=== PATIENT | female | born 1955 | race African-American/Black ===

== ENCOUNTER 2024-06-10 16:19 | Inpatient (IN) | payer MEDICARE, MEDICAID ==
[~2024-06-10] VITALS: Ht 160 cm; Wt 63.0 kg
[~2024-06-10 16:19] MED LIST: BACL20TA PO; DIPH25CA83 PO; NORCO PO
[2024-06-10] MEDS ORDERED: CEFTRIAXONE 1GM/50ML 50 ML IV ONE (16:30)
[2024-06-10 17:45] LABS: BASOPHILS % 0.6 % (0.0-2.0); DIFFERENTIAL COMMENT 0; EOSINOPHILS % 0.2 % (0.0-5.0); LYMPHOCYTES % 7.4 % (20.0-50.0); MEAN CORPUSCULAR HEMOGLOBIN 31.5 pg (28.0-32.0); MEAN CORPUSCULAR HGB CONC 31.2 g/dL (31.0-37.0); MEAN CORPUSCULAR VOLUME 100.8 fL (81.0-99.0); MEAN PLATELET VOLUME 7.5 fl (7.4-10.4); MONOCYTES % 6.2 % (2.0-8.0); NEUTROPHILS % 85.6 % (40.0-76.0); PLATELET 301 x1000/uL (130-400); RED BLOOD CELL COUNT 2.21 mill/uL (4.2-5.4); RED CELL DISTRIBUTION WIDTH 12.9 % (11.6-14.6); WHITE BLOOD COUNT 8.7 x1000/uL (4.5-11.0)
[2024-06-10 17:46] LABS: CHLORIDE 111 mEq/L (98-107); SODIUM 136 mEq/L (136-145)
[2024-06-10 17:47] LABS: CALCIUM 9.2 mg/dL (8.7-10.4); CARBON DIOXIDE 12 mEq/L (21-32)
[2024-06-10 17:49] LABS: PROTHROMBIN TIME 10.8 sec (9.6-11.0)
[2024-06-10 17:52] LABS: CREATININE 2.6 mg/dL (0.6-1.0); GLUCOSE 89 mg/dL (70-105); UREA NITROGEN BLOOD 44 mg/dL (9-23)
[2024-06-10 17:53] LABS: TROPONIN I HIGH SENSITIVITY 9 ng/L (3.0-34)
[2024-06-10 17:54] LABS: ALANINE AMINOTRANSFERASE 27 IU/L (10-49); ALBUMIN 4.3 g/dL (3.2-4.8); ASPARTATE AMINOTRANSFERASE 36 IU/L (<34); BILIRUBIN DIRECT 0.1 mg/dL (<=3.0); BILIRUBIN TOTAL 0.3 mg/dL (0.1-1.0); PROTEIN TOTAL 8.1 g/dL (6.0-8.3)
[2024-06-10 17:58] LABS: HEMATOCRIT. 22.3 % (36.0-48.0)
[2024-06-10 18:08] LABS: ETHANOL BLOOD < 10 mg/dL (<10)
[2024-06-10] MEDS ORDERED: ACETAMINOPHEN 325MG TABLET PO PRN (23:30)
[2024-06-10] MEDS ORDERED: IPRATROPIUM/ALBUTEROL 0.5-3(2.5)MG/3ML NEB HHN PRN (23:30)
[2024-06-10] MEDS ORDERED: GUAIFENESIN 200MG/10ML SUGAR FREE UDC PO PRN (23:30)
[2024-06-10] MEDS ORDERED: MAGNESIUM/ALUMINUM HYDROXIDE/SIMETHICONE 30ML UDC PO PRN (23:30)
[2024-06-10] MEDS ORDERED: LACTATED RINGERS 1,000 ML IV SCH (23:50)
[2024-06-10] MEDS ORDERED: AMLODIPINE 10MG TABLET PO SCH (23:50)
[2024-06-11 00:21] LABS: IRON 16 ug/dL (50-170)
[2024-06-11 00:24] LABS: TOTAL IRON BINDING CAPACITY 445 ug/dl (250-425)
[2024-06-11 00:27] LABS: FERRITIN 48 ng/mL (10-291); FOLIC ACID (FOLATE) SERUM > 20.00 ng/mL (>5.38); VITAMIN B12 SERUM 277 pg/mL (211-911)
[2024-06-11 00:28] LABS: T4 FREE 0.89 ng/dL (0.89-1.76); THYROID STIMULATING HORMONE 3.17 uIU/mL (0.55-4.78)
[2024-06-11] MEDS: CEFTRIAXONE 1GM/50ML 50 ML IV NR (03:00)
[2024-06-11] MEDS: AMLODIPINE 5MG TABLET PO SCH (04:15)
[2024-06-11 07:29] LABS: BASOPHILS % 0.5 % (0.0-2.0); DIFFERENTIAL COMMENT 0; EOSINOPHILS % 0.1 % (0.0-5.0); HEMATOCRIT. 24.1 % (36.0-48.0); HEMOGLOBIN. 7.6 g/dL (12.0-16.0); LYMPHOCYTES % 14.8 % (20.0-50.0); MEAN CORPUSCULAR HEMOGLOBIN 31.8 pg (28.0-32.0); MEAN CORPUSCULAR HGB CONC 31.5 g/dL (31.0-37.0); MEAN CORPUSCULAR VOLUME 101.1 fL (81.0-99.0); MEAN PLATELET VOLUME 7.1 fl (7.4-10.4); MONOCYTES % 6.5 % (2.0-8.0); NEUTROPHILS % 78.1 % (40.0-76.0); PLATELET 309 x1000/uL (130-400); RED BLOOD CELL COUNT 2.38 mill/uL (4.2-5.4); WHITE BLOOD COUNT 7.4 x1000/uL (4.5-11.0)
[2024-06-11 07:52] LABS: POTASSIUM 4.1 mEq/L (3.5-5.1)
[2024-06-11 07:56] LABS: CREATINE KINASE MB FRACTION 2.2 ng/mL (0.5-3.6)
[2024-06-11 07:58] LABS: CREATININE 2.3 mg/dL (0.6-1.0)
[2024-06-11] MEDS: SODIUM CHLORIDE 0.9% 1000ML BAG (SEPSIS BOLUS) IV ONE (08:57)
[2024-06-11] MEDS: SODIUM BICARBONATE 8.4% 50MEQ/50ML SYR IV NR (11:17)
[2024-06-11 11:38] LABS: CREATINE KINASE 171 IU/L (34-145); PHOSPHORUS 6.1 mg/dL (2.5-4.9)
[2024-06-11 12:00] VITALS: BP 165/73; PULSE 90; RESP 20; TEMP 98.5
[2024-06-11] MEDS: SODIUM BICARBONATE 100 MEQ in DEXTROSE 5% WATER 900 ML IV SCH (12:00)
[2024-06-11 12:01] LABS: BG BASE EXCESS -14.4 mmol/L (-2.0-2.0); BG CARBOXYHEMOGLOBIN 1.3 % (0.5-1.5); BG DEOXYHEMOGLOBIN 2.6 % (0.0-5.0); BG FRACTION INSPIRED OXYGEN 21; BG HCO3 ACT 10.8 mmol/L (22.0-26.0); BG METHEMOGLOBIN 0.3 % (0.0-1.5); BG OXYGEN SATURATION 97.4 % (92.0-98.5); BG OXYHEMOGLOBIN 95.8 % (94.0-97.0); BG PCO2 23.1 mmHg (35.0-45.0); BG PH 7.287 (7.350-7.450); BG PO2 103.7 mmHg (75.0-100.0); BG SAMPLE SITE RIGHT RADIAL; BG TOTAL HEMOGLOBIN 7.2 g/dL (12.0-18.0); BG VENT MODE ROOM AIR
[2024-06-11] MEDS: LISINOPRIL 2.5MG TABLET PO SCH (15:28)
[2024-06-11] MEDS: ASPIRIN 81MG EC TABLET PO SCH (15:28)
[2024-06-11] MEDS: SODIUM CHLORIDE 0.45% 1,000 ML IV SCH (15:33)
[2024-06-11 16:00] VITALS: BP 160/75; PULSE 92; RESP 20; TEMP 99.1
[2024-06-11 17:07] LABS: CREATINE KINASE MB FRACTION 1.7 ng/mL (0.5-3.6)
[2024-06-11] MEDS: CYANOCOBALAMIN 1000MCG/ML VIAL IM SCH (18:32)
[2024-06-11] MEDS: ACETAMINOPHEN 325MG TABLET PO PRN (18:32)
[2024-06-11 20:00] VITALS: BP 155/74; PULSE 92; RESP 18; TEMP 97.7
[2024-06-11] MEDS: ATORVASTATIN CALCIUM 40MG TABLET PO SCH (21:58)
[2024-06-11] MEDS: FAMOTIDINE 20MG TABLET PO SCH (21:58)
[2024-06-12] VITALS: BP 126/61; PULSE 78; RESP 20; TEMP 97.3
[2024-06-12 04:00] VITALS: BP 120/58; PULSE 74; RESP 18; TEMP 97
[2024-06-12 06:28] LABS: BASOPHILS % 0.7 % (0.0-2.0); DIFFERENTIAL COMMENT 0; HEMATOCRIT. 23.2 % (36.0-48.0); HEMOGLOBIN. 7.3 g/dL (12.0-16.0); LYMPHOCYTES % 11.4 % (20.0-50.0); MEAN CORPUSCULAR HGB CONC 31.5 g/dL (31.0-37.0); MEAN CORPUSCULAR VOLUME 101.3 fL (81.0-99.0); MEAN PLATELET VOLUME 8.1 fl (7.4-10.4); MONOCYTES % 8.3 % (2.0-8.0); NEUTROPHILS % 78.6 % (40.0-76.0); PLATELET 324 x1000/uL (130-400); RED BLOOD CELL COUNT 2.29 mill/uL (4.2-5.4); RED CELL DISTRIBUTION WIDTH 12.8 % (11.6-14.6)
[2024-06-12 06:51] LABS: CHLORIDE 114 mEq/L (98-107); POTASSIUM 4.4 mEq/L (3.5-5.1); SODIUM 138 mEq/L (136-145)
[2024-06-12 06:52] LABS: CARBON DIOXIDE 13 mEq/L (21-32)
[2024-06-12 06:53] LABS: CALCIUM 8.9 mg/dL (8.7-10.4)
[2024-06-12 06:57] LABS: CREATININE 2.4 mg/dL (0.6-1.0); GLUCOSE 137 mg/dL (70-105)
[2024-06-12 06:58] LABS: UREA NITROGEN BLOOD 39 mg/dL (9-23)
[2024-06-12 06:59] LABS: ALANINE AMINOTRANSFERASE 24 IU/L (10-49); ALBUMIN 3.9 g/dL (3.2-4.8); ASPARTATE AMINOTRANSFERASE 31 IU/L (<34)
[2024-06-12 07:00] LABS: BILIRUBIN TOTAL 0.2 mg/dL (0.1-1.0); PROTEIN TOTAL 7.5 g/dL (6.0-8.3)
[2024-06-12 16:00] VITALS: BP 130/50; PULSE 73; RESP 18; TEMP 97.3
[2024-06-12 20:00] VITALS: BP 137/58; PULSE 76; RESP 20; TEMP 97.6
[2024-06-13] VITALS (7 sets, daily range): BP systolic 128–158; BP diastolic 53–79; PULSE 62–74; RESP 18–20; TEMP 97.1–97.9
[2024-06-13 08:01] LABS: POTASSIUM 4.9 mEq/L (3.5-5.1)
[2024-06-13 08:07] LABS: CREATININE 2.1 mg/dL (0.6-1.0)
[2024-06-13 08:11] LABS: COMPLEMENT C3 118 mg/dL (82-167); COMPLEMENT C4 28 mg/dL (12-38)
[2024-06-13 08:13] LABS: BASOPHILS % 1.1 % (0.0-2.0); DIFFERENTIAL COMMENT 0; EOSINOPHILS % 2.1 % (0.0-5.0); HEMATOCRIT. 21.9 % (36.0-48.0); LYMPHOCYTES % 18.3 % (20.0-50.0); MEAN CORPUSCULAR HEMOGLOBIN 31.8 pg (28.0-32.0); MEAN CORPUSCULAR HGB CONC 31.6 g/dL (31.0-37.0); MEAN CORPUSCULAR VOLUME 100.6 fL (81.0-99.0); MEAN PLATELET VOLUME 8.2 fl (7.4-10.4); NEUTROPHILS % 70.5 % (40.0-76.0); PLATELET 331 x1000/uL (130-400); RED BLOOD CELL COUNT 2.18 mill/uL (4.2-5.4); RED CELL DISTRIBUTION WIDTH 12.9 % (11.6-14.6); WHITE BLOOD COUNT 5.3 x1000/uL (4.5-11.0)
[2024-06-13] MEDS: CHOLECALCIFEROL (D3) 1000 UNIT TABLET PO SCH (09:00)
[2024-06-13 09:28] LABS: HEMOGLOBIN. 6.9 g/dL (12.0-16.0)
[2024-06-13] MEDS ORDERED: IPRATROPIUM/ALBUTEROL 0.5-3(2.5)MG/3ML NEB HHN PRN (16:00)
[2024-06-13] MEDS: DEXAMETHASONE 4MG/ML 1ML VIAL IV SCH (18:00)
[2024-06-13 18:40] LABS: IRON 22 ug/dL (50-170)
[2024-06-13 18:43] LABS: TOTAL IRON BINDING CAPACITY 330 ug/dl (250-425)
[2024-06-13 20:37] LABS: BILIRUBIN TOTAL 0.2 mg/dL (0.1-1.0)
[2024-06-14] VITALS: BP 158/72; PULSE 66; RESP 19; TEMP 97.1
[2024-06-14 04:00] VITALS: BP 142/66; PULSE 66; RESP 19; TEMP 97.3
[2024-06-14 08:00] VITALS: BP 149/70; PULSE 74; RESP 19; TEMP 97.5
[2024-06-14 08:21] LABS: CALCIUM 9.3 mg/dL (8.7-10.4)
[2024-06-14 08:25] LABS: CREATININE 2.5 mg/dL (0.6-1.0)
[2024-06-14 08:30] LABS: HEMATOCRIT 29.9 % (36.0-48.0); HEMOGLOBIN 9.3 g/dL (12.0-16.0); MEAN CORPUSCULAR HEMOGLOBIN 29.7 pg (28.0-32.0); MEAN CORPUSCULAR HGB CONC 31.2 g/dL (31.0-37.0); MEAN CORPUSCULAR VOLUME 95.2 fL (81.0-99.0); PLATELET 364 x1000/uL (130-400); RED BLOOD CELL COUNT 3.14 mill/uL (4.2-5.4); RED CELL DISTRIBUTION WIDTH 17.8 % (11.6-14.6); WHITE BLOOD COUNT 5.8 x1000/uL (4.5-11.0)
[2024-06-14 12:00] VITALS: BP 139/57; PULSE 72; RESP 18; TEMP 98.1
[2024-06-14 12:07] LABS: CLARITY URINE CLEAR (CLEAR); COLOR URINE YELLOW (YELLOW); GLUCOSE URINE NEGATIVE (NEGATIVE); KETONES URINE NEGATIVE (NEGATIVE); LEUKOCYTE ESTERASE URINE 1+ (NEGATIVE); NITRITE URINE NEGATIVE (NEGATIVE); OCCULT BLOOD URINE 1+ (NEGATIVE); PH URINE 5.5 (4.5-8.0); PROTEIN URINE 2+ (NEGATIVE); SPECIFIC GRAVITY URINE 1.014 (1.005-1.030); UROBILINOGEN URINE 0.2 E.U./dL (0.2-1.0)
[2024-06-14 12:32] LABS: BACTERIA URINE 1+; RBC URINE 0-2 /hpf (0-2); SQUAMOUS EPITHELIAL CELL URINE 1+ /lpf (RARE/1+); YEAST URINE NONE SEEN
[2024-06-14 16:00] VITALS: BP 145/80; PULSE 85; RESP 19; TEMP 97.3
[2024-06-14] MEDS ORDERED: LORAZEPAM 0.5MG TABLET PO NR (19:00)
[2024-06-14 20:00] VITALS: BP 148/75; PULSE 83; RESP 18; TEMP 98
[2024-06-15] VITALS (44 sets, daily range): BP systolic 105–157; BP diastolic 45–75; PULSE 65–109; RESP 13–29; TEMP 96.8–98.3
[2024-06-15] MEDS ORDERED: GENTAMICIN SULF 40MG/ML 2ML VIAL ONE (08:14)
[2024-06-15] MEDS ORDERED: LIDOCAINE HCL/EPINEPHRINE 1%-EPI 1:100,000 20 ML VIAL ONE (08:14)
[2024-06-15] MEDS ORDERED: THROMBIN (BOVINE) 5000 UNITS/VIAL TOP ONE (08:14)
[2024-06-15 08:43] LABS: HEMATOCRIT 26.5 % (36.0-48.0); HEMOGLOBIN 8.5 g/dL (12.0-16.0); MEAN CORPUSCULAR HEMOGLOBIN 30.3 pg (28.0-32.0); MEAN CORPUSCULAR HGB CONC 32.1 g/dL (31.0-37.0); MEAN CORPUSCULAR VOLUME 94.3 fL (81.0-99.0); PLATELET 341 x1000/uL (130-400); RED BLOOD CELL COUNT 2.81 mill/uL (4.2-5.4); RED CELL DISTRIBUTION WIDTH 17.6 % (11.6-14.6); WHITE BLOOD COUNT 11.1 x1000/uL (4.5-11.0)
[2024-06-15 08:49] LABS: POTASSIUM 5.3 mEq/L (3.5-5.1)
[2024-06-15 08:50] LABS: CALCIUM 9.4 mg/dL (8.7-10.4)
[2024-06-15 08:55] LABS: CREATININE 2.2 mg/dL (0.6-1.0)
[2024-06-15] MEDS ORDERED: PROPOFOL 200MG/20ML VIAL IV ONE ×2 (10:30→11:23)
[2024-06-15] MEDS ORDERED: LIDOCAINE HCL/PF 1% 10 MG/ML 5ML VIAL ONE (10:31)
[2024-06-15] MEDS ORDERED: SUCCINYLCHOLINE CHLORIDE 200MG/10ML IV ONE (10:31)
[2024-06-15] MEDS ORDERED: ROCURONIUM BROMIDE 10MG/ML VIAL 5ML IV ONE (10:34)
[2024-06-15] MEDS ORDERED: DEXAMETHASONE 4MG/ML 1ML VIAL ONE (10:34)
[2024-06-15] MEDS ORDERED: FENTANYL CITRATE/PF 50MCG/ML 2ML VIAL ONE ×2 (11:01→12:20)
[2024-06-15] MEDS ORDERED: HYDRALAZINE 20MG/ML VIAL ONE (11:21)
[2024-06-15] MEDS: SUGAMMADEX SODIUM 200 MG/2 ML VIAL IV NR (13:00)
[2024-06-15] MEDS ORDERED: NALOXONE HCL 0.4MG/ML VIAL IV PRN (13:15)
[2024-06-15] MEDS: MORPHINE SULFATE 4 MG/ML INJ (FOR IV/IM USE) IV PRN (13:59)
[2024-06-15] MEDS ORDERED: CEFAZOLIN SODIUM 1000MG/VIAL IV SCH (14:00)
[2024-06-15] MEDS: MORPHINE SULFATE 2 MG/ML INJ (NOT FOR IM USE) IV NR (14:30)
[2024-06-15] MEDS: DEXT 5%/LACTATED RINGERS 1,000 ML IV SCH (15:15)
[2024-06-15] MEDS: ONDANSETRON HCL 4MG/2ML INJ IV PRN (15:15)
[2024-06-15] MEDS: MORPHINE SULFATE 4 MG/ML INJ (FOR IV/IM USE) IV NR (15:19)
[2024-06-15] MEDS: NICARDIPINE 100 MG in SODIUM CHLORIDE 0.9% 60 ML IV PRN (15:35)
[2024-06-15] MEDS ORDERED: SODIUM ZIRCONIUM CYCLOSILICATE 10GM/PACKET PO NR (16:15)
[2024-06-15] MEDS: DEXAMETHASONE 4MG/ML 1ML VIAL IV SCH (18:35)
[2024-06-15] MEDS: HYDROCODONE/ACETAMINOPHEN 7.5/325MG TABLET PO PRN (18:58)
[2024-06-15] MEDS: CEFAZOLIN 1000MG PREMIX 50ML IV SCH (20:57)
[2024-06-15] MEDS: ZOLPIDEM TARTRATE 5MG TABLET PO PRN (20:57)
[2024-06-15] MEDS: SODIUM BICARBONATE 100 MEQ in DEXTROSE 5% WATER 900 ML IV SCH (21:36)
[2024-06-16] VITALS (59 sets, daily range): BP systolic 122–164; BP diastolic 41–91; PULSE 74–95; RESP 11–21; TEMP 97.5–98.2
[2024-06-16] MEDS ORDERED: SODIUM BICARBONATE 100 MEQ in DEXT 5%/0.9% NACL 1,000 ML IV SCH (02:30)
[2024-06-16] MEDS ORDERED: SODIUM BICARBONATE 100MEQ in DEXTROSE 5% WATER 1000ML IV SCH (03:00)
[2024-06-16] MEDS: SODIUM BICARBONATE 100 MEQ in DEXT 5%/0.9% NACL 900 ML IV SCH (03:18)
[2024-06-16 05:30] LABS: POTASSIUM 5.3 mEq/L (3.5-5.1)
[2024-06-16 05:31] LABS: CALCIUM 8.7 mg/dL (8.7-10.4)
[2024-06-16 05:36] LABS: CREATININE 2.5 mg/dL (0.6-1.0)
[2024-06-16 05:37] LABS: HEMATOCRIT. 29.7 % (36.0-48.0); HEMOGLOBIN. 9.7 g/dL (12.0-16.0); MEAN CORPUSCULAR HEMOGLOBIN 30.2 pg (28.0-32.0); MEAN CORPUSCULAR HGB CONC 32.6 g/dL (31.0-37.0); MEAN CORPUSCULAR VOLUME 92.6 fL (81.0-99.0); PLATELET 380 x1000/uL (130-400); RED BLOOD CELL COUNT 3.21 mill/uL (4.2-5.4); RED CELL DISTRIBUTION WIDTH 17.1 % (11.6-14.6); WHITE BLOOD COUNT 23.5 x1000/uL (4.5-11.0)
[2024-06-16 06:21] LABS: DIFFERENTIAL COMMENT 1
[2024-06-16] MEDS: DOCUSATE SODIUM 100MG CAPSULE PO PRN (08:02)
[2024-06-16 10:28] LABS: ANISOCYTOSIS 1+; PLATELET ESTIMATE NORMAL
[2024-06-16] MEDS: SODIUM BICARBONATE 150 MEQ in DEXTROSE 5% WATER 850 ML IV SCH (11:29)
[2024-06-16] MEDS ORDERED: DEXTROSE 50% WATER 50ML SYRINGE IV PRN (22:15)
[2024-06-17] VITALS: BP 147/69; PULSE 102; RESP 20; TEMP 97.7
[2024-06-17 04:00] VITALS: BP 144/77; PULSE 98; RESP 18; TEMP 97.7
[2024-06-17] MEDS: BLOOD SUGAR DIAGNOSTIC STRIP TEST SCH (07:20)
[2024-06-17 07:32] LABS: POTASSIUM 5.2 mEq/L (3.5-5.1)
[2024-06-17 07:34] LABS: CALCIUM 8.6 mg/dL (8.7-10.4)
[2024-06-17 07:38] LABS: CREATININE 2.6 mg/dL (0.6-1.0)
[2024-06-17] MEDS: INSULIN LISPRO 100 UNITS/ML SUBCUT SCH (07:50)
[2024-06-17 08:00] VITALS: BP 140/74; PULSE 91; RESP 19; TEMP 97.6
[2024-06-17 08:07] LABS: MICROALBUMIN RANDOM URINE 309.6 ug/mL (Not Estab.)
[2024-06-17 08:16] LABS: HEMATOCRIT. 30.7 % (36.0-48.0); MEAN CORPUSCULAR HEMOGLOBIN 30.1 pg (28.0-32.0); MEAN CORPUSCULAR HGB CONC 32.7 g/dL (31.0-37.0); MEAN CORPUSCULAR VOLUME 92.3 fL (81.0-99.0); MEAN PLATELET VOLUME 8.1 fl (7.4-10.4); PLATELET 330 x1000/uL (130-400); RED BLOOD CELL COUNT 3.33 mill/uL (4.2-5.4); RED CELL DISTRIBUTION WIDTH 16.4 % (11.6-14.6); WHITE BLOOD COUNT 24.7 x1000/uL (4.5-11.0)
[2024-06-17 08:28] LABS: DIFFERENTIAL COMMENT 1
[2024-06-17 11:02] LABS: ANISOCYTOSIS 1+; PLATELET ESTIMATE NORMAL
[2024-06-17 12:00] VITALS: BP 149/68; PULSE 78; RESP 20; TEMP 97.5
[2024-06-17] MEDS: SODIUM ZIRCONIUM CYCLOSILICATE 10GM/PACKET PO NR (12:32)
[2024-06-17 16:00] VITALS: BP 131/106; PULSE 97; RESP 19; TEMP 98.6
[2024-06-17] MEDS ORDERED: BISACODYL 10MG SUPP PR PRN (16:30)
[2024-06-17] MEDS ORDERED: SENNOSIDES 8.6MG TABLET PO PRN (16:30)
[2024-06-17] MEDS ORDERED: DIATR MEGLU/DIATRIZOATE SOLN 30ML PO SCH (16:30)
[2024-06-17] MEDS ORDERED: DIATR MEGLU/DIATRIZOATE SOLN 30ML ONE (17:35)
[2024-06-17 20:00] VITALS: BP 142/66; PULSE 85; RESP 18; TEMP 97.9
[2024-06-17] MEDS: DOCUSATE SODIUM 100MG CAPSULE PO SCH (22:01)
[2024-06-17] MEDS: ASCORBIC ACID 250 MG TABLET PO SCH (22:01)
[2024-06-17] MEDS: FERROUS SULFATE 325MG TABLET PO SCH (22:02)
[2024-06-18] VITALS: BP 139/74; PULSE 90; RESP 18; TEMP 97.7
[2024-06-18 04:00] VITALS: BP 111/64; PULSE 80; RESP 18; TEMP 98.4
[2024-06-18 08:00] VITALS: BP 108/66; PULSE 68; RESP 19; TEMP 96.9
[2024-06-18] MEDS: AMLODIPINE 10MG TABLET PO SCH (08:13)
[2024-06-18 10:39] LABS: POTASSIUM 4.6 mEq/L (3.5-5.1)
[2024-06-18 10:40] LABS: CALCIUM 8.2 mg/dL (8.7-10.4)
[2024-06-18 10:43] LABS: HEMATOCRIT. 25.8 % (36.0-48.0); HEMOGLOBIN. 8.4 g/dL (12.0-16.0); MEAN CORPUSCULAR HGB CONC 32.4 g/dL (31.0-37.0); MEAN CORPUSCULAR VOLUME 92.8 fL (81.0-99.0); MEAN PLATELET VOLUME 7.7 fl (7.4-10.4); PLATELET 336 x1000/uL (130-400); RED BLOOD CELL COUNT 2.78 mill/uL (4.2-5.4); RED CELL DISTRIBUTION WIDTH 17.1 % (11.6-14.6); WHITE BLOOD COUNT 22.6 x1000/uL (4.5-11.0)
[2024-06-18 10:45] LABS: CREATININE 2.4 mg/dL (0.6-1.0)
[2024-06-18 11:04] LABS: DIFFERENTIAL COMMENT 1
[2024-06-18 12:00] VITALS: BP 137/68; PULSE 90; RESP 18; TEMP 96.9
[2024-06-18 17:57] LABS: ANISOCYTOSIS 1+; PLATELET ESTIMATE NORMAL
[2024-06-18 20:00] VITALS: BP 153/64; PULSE 97; RESP 18; TEMP 98.6
[2024-06-18] MEDS ORDERED: SODIUM CHLORIDE 0.9% 500 ML IV ONE (23:45)
[2024-06-19] VITALS (12 sets, daily range): BP systolic 104–151; BP diastolic 60–85; PULSE 61–98; RESP 17–19; TEMP 97–98.8
[2024-06-19 01:16] LABS: HEMATOCRIT 20.8 % (36.0-48.0); HEMOGLOBIN 6.5 g/dL (12.0-16.0)
[2024-06-19 06:56] LABS: BASOPHILS % 0.1 % (0.0-2.0); DIFFERENTIAL COMMENT 0; EOSINOPHILS % 0.1 % (0.0-5.0); LYMPHOCYTES % 9.9 % (20.0-50.0); MEAN CORPUSCULAR HEMOGLOBIN 29.2 pg (28.0-32.0); MEAN CORPUSCULAR HGB CONC 31.1 g/dL (31.0-37.0); MEAN CORPUSCULAR VOLUME 93.9 fL (81.0-99.0); MEAN PLATELET VOLUME 8.1 fl (7.4-10.4); MONOCYTES % 8.3 % (2.0-8.0); NEUTROPHILS % 81.6 % (40.0-76.0); PLATELET 240 x1000/uL (130-400); RED BLOOD CELL COUNT 2.12 mill/uL (4.2-5.4); RED CELL DISTRIBUTION WIDTH 16.6 % (11.6-14.6); WHITE BLOOD COUNT 17.7 x1000/uL (4.5-11.0)
[2024-06-19 06:58] LABS: CARBON DIOXIDE 29 mEq/L (21-32); CHLORIDE 107 mEq/L (98-107); POTASSIUM 5.3 mEq/L (3.5-5.1); SODIUM 141 mEq/L (136-145)
[2024-06-19 06:59] LABS: CALCIUM 8.4 mg/dL (8.7-10.4)
[2024-06-19 07:01] LABS: HEMATOCRIT. 19.9 % (36.0-48.0); HEMOGLOBIN. 6.2 g/dL (12.0-16.0)
[2024-06-19 07:03] LABS: CREATININE 2.2 mg/dL (0.6-1.0); GLUCOSE 90 mg/dL (70-105)
[2024-06-19 07:04] LABS: UREA NITROGEN BLOOD 56 mg/dL (9-23)
[2024-06-19 07:05] LABS: ALANINE AMINOTRANSFERASE 25 IU/L (10-49); ALBUMIN 3.2 g/dL (3.2-4.8); ASPARTATE AMINOTRANSFERASE 57 IU/L (<34)
[2024-06-19 07:06] LABS: BILIRUBIN TOTAL 0.2 mg/dL (0.1-1.0); PROTEIN TOTAL 5.6 g/dL (6.0-8.3)
[2024-06-19] MEDS: FERROUS SULFATE 325MG TABLET PO SCH (08:23)
[2024-06-19] MEDS: SODIUM ZIRCONIUM CYCLOSILICATE 10GM/PACKET PO NR (12:43)
[2024-06-19 15:39] LABS: HEMATOCRIT 23.9 % (36.0-48.0); HEMOGLOBIN 7.7 g/dL (12.0-16.0)
[2024-06-19 15:53] LABS: PROTHROMBIN TIME 11.2 sec (9.6-11.0)
[2024-06-19] MEDS: ZOLPIDEM TARTRATE 5MG TABLET PO PRN (22:28)
[2024-06-20] VITALS: BP 160/72; PULSE 103; RESP 19; TEMP 97.5
[2024-06-20 04:00] VITALS: BP 160/72; PULSE 104; RESP 18; TEMP 97.5
[2024-06-20 07:43] LABS: BASOPHILS % 0.2 % (0.0-2.0); HEMATOCRIT. 26.2 % (36.0-48.0); HEMOGLOBIN. 8.4 g/dL (12.0-16.0); LYMPHOCYTES % 10.6 % (20.0-50.0); MEAN CORPUSCULAR HEMOGLOBIN 28.6 pg (28.0-32.0); MEAN CORPUSCULAR HGB CONC 32.1 g/dL (31.0-37.0); MEAN CORPUSCULAR VOLUME 89.2 fL (81.0-99.0); MEAN PLATELET VOLUME 7.6 fl (7.4-10.4); MONOCYTES % 9.1 % (2.0-8.0); NEUTROPHILS % 79.1 % (40.0-76.0); PLATELET 245 x1000/uL (130-400); RED BLOOD CELL COUNT 2.94 mill/uL (4.2-5.4); RED CELL DISTRIBUTION WIDTH 18.4 % (11.6-14.6); WHITE BLOOD COUNT 15.5 x1000/uL (4.5-11.0)
[2024-06-20 08:00] VITALS: BP 156/65; PULSE 90; RESP 18; TEMP 98.2
[2024-06-20 08:00] LABS: POTASSIUM 4.3 mEq/L (3.5-5.1)
[2024-06-20 08:01] LABS: CALCIUM 8.6 mg/dL (8.7-10.4)
[2024-06-20 08:04] LABS: CREATININE 1.9 mg/dL (0.6-1.0)
[2024-06-20 12:00] VITALS: BP 141/64; PULSE 86; RESP 18; TEMP 98
[2024-06-20 16:00] VITALS: BP 164/69; PULSE 102; RESP 19; TEMP 97.9
[2024-06-20 20:00] VITALS: BP 160/71; PULSE 113; RESP 19; TEMP 100.8
[2024-06-20] MEDS ORDERED: NALOXONE HCL 0.4MG/ML VIAL IV PRN (20:00)
[2024-06-20] MEDS: SENNOSIDES 8.6MG TABLET PO SCH (20:33)
[2024-06-20] MEDS: HYDROCODONE/ACETAMINOPHEN 5/325MG TABLET PO PRN (20:35)
[2024-06-21] VITALS: BP 138/65; PULSE 98; RESP 18; TEMP 97.7
[2024-06-21 04:00] VITALS: BP 136/61; PULSE 86; RESP 20; TEMP 99.5
[2024-06-21 08:05] LABS: CHLORIDE 105 mEq/L (98-107); POTASSIUM 4.5 mEq/L (3.5-5.1); SODIUM 139 mEq/L (136-145)
[2024-06-21 08:08] LABS: CALCIUM 8.7 mg/dL (8.7-10.4); CARBON DIOXIDE 28 mEq/L (21-32)
[2024-06-21 08:13] LABS: CREATININE 2.1 mg/dL (0.6-1.0); GLUCOSE 82 mg/dL (70-105); UREA NITROGEN BLOOD 32 mg/dL (9-23)
[2024-06-21 08:15] LABS: ALANINE AMINOTRANSFERASE 30 IU/L (10-49); ALBUMIN 3.4 g/dL (3.2-4.8); ASPARTATE AMINOTRANSFERASE 53 IU/L (<34); BASOPHILS % 0.1 % (0.0-2.0); BILIRUBIN DIRECT 0.2 mg/dL (<=3.0); BILIRUBIN TOTAL 0.4 mg/dL (0.1-1.0); EOSINOPHILS % 1.4 % (0.0-5.0); HEMATOCRIT. 23.2 % (36.0-48.0); HEMOGLOBIN. 7.5 g/dL (12.0-16.0); LYMPHOCYTES % 12.3 % (20.0-50.0); MEAN CORPUSCULAR HEMOGLOBIN 29.1 pg (28.0-32.0); MEAN CORPUSCULAR HGB CONC 32.3 g/dL (31.0-37.0); MEAN CORPUSCULAR VOLUME 89.8 fL (81.0-99.0); MEAN PLATELET VOLUME 7.9 fl (7.4-10.4); MONOCYTES % 8.6 % (2.0-8.0); NEUTROPHILS % 77.6 % (40.0-76.0); PLATELET 246 x1000/uL (130-400); PROTEIN TOTAL 5.8 g/dL (6.0-8.3); RED BLOOD CELL COUNT 2.58 mill/uL (4.2-5.4); RED CELL DISTRIBUTION WIDTH 17.8 % (11.6-14.6)
[2024-06-21] MEDS: DOCUSATE SODIUM 100MG CAPSULE PO SCH (09:22)
[2024-06-21 16:00] VITALS: BP 129/53; PULSE 94; RESP 18; TEMP 97.6
[2024-06-21 20:00] VITALS: BP 142/56; PULSE 96; RESP 19; TEMP 99
[2024-06-22 04:00] VITALS: BP 124/58; PULSE 78; RESP 18; TEMP 98.1
[2024-06-22 08:00] VITALS: BP 160/54; PULSE 88; RESP 18; TEMP 98.4
[2024-06-22 12:00] VITALS: BP 136/53; PULSE 92; RESP 18; TEMP 98.7
[2024-06-22 16:00] VITALS: BP 127/43; PULSE 97; RESP 18; TEMP 98.2
[2024-06-22 20:00] VITALS: BP 151/62; PULSE 94; RESP 18; TEMP 97.8
[2024-06-23] VITALS: BP 129/60; PULSE 106; RESP 20; TEMP 98.3
[2024-06-23 04:00] VITALS: BP 156/66; PULSE 87; RESP 19; TEMP 97.9
[2024-06-23 06:44] LABS: POTASSIUM 4.5 mEq/L (3.5-5.1)
[2024-06-23 06:45] LABS: BASOPHILS % 0.1 % (0.0-2.0); EOSINOPHILS % 2.1 % (0.0-5.0); HEMATOCRIT. 24.7 % (36.0-48.0); LYMPHOCYTES % 14.9 % (20.0-50.0); MEAN CORPUSCULAR HEMOGLOBIN 29.5 pg (28.0-32.0); MEAN CORPUSCULAR HGB CONC 32.5 g/dL (31.0-37.0); MEAN CORPUSCULAR VOLUME 90.8 fL (81.0-99.0); MEAN PLATELET VOLUME 8.5 fl (7.4-10.4); MONOCYTES % 9.3 % (2.0-8.0); NEUTROPHILS % 73.6 % (40.0-76.0); PLATELET 282 x1000/uL (130-400); RED BLOOD CELL COUNT 2.72 mill/uL (4.2-5.4); RED CELL DISTRIBUTION WIDTH 18.2 % (11.6-14.6); WHITE BLOOD COUNT 10.9 x1000/uL (4.5-11.0)
[2024-06-23 06:46] LABS: CALCIUM 9.2 mg/dL (8.7-10.4)
[2024-06-23 06:50] LABS: CREATININE 2.1 mg/dL (0.6-1.0)
[2024-06-23] MEDS: CLONIDINE 0.1MG TABLET PO PRN (08:34)
[2024-06-23 12:00] VITALS: BP 156/62; PULSE 87; RESP 18; TEMP 98.3
[2024-06-23 16:00] VITALS: BP 160/69; PULSE 81; RESP 18; TEMP 98
[2024-06-23 20:00] VITALS: BP 125/49; PULSE 89; RESP 20; TEMP 98.9
[2024-06-24] VITALS: BP 131/59; PULSE 83; RESP 19; TEMP 98.8
[2024-06-24 04:00] VITALS: BP 143/62; PULSE 87; RESP 20; TEMP 97.8
[2024-06-24 08:00] VITALS: BP 120/69; PULSE 91; RESP 18; TEMP 97
[2024-06-24 12:00] VITALS: BP 143/89; PULSE 97; RESP 19; TEMP 96.8
[2024-06-24 16:00] VITALS: BP 126/50; PULSE 92; RESP 18; TEMP 97
[2024-06-24 20:00] VITALS: BP 124/58; PULSE 86; RESP 18; TEMP 97.7
[2024-06-25] VITALS: BP 139/62; PULSE 87; RESP 20; TEMP 98.1
[2024-06-25 08:00] VITALS: BP 140/52; PULSE 77; RESP 19; TEMP 96.9
[2024-06-25 12:00] VITALS: BP 121/53; PULSE 81; RESP 19; TEMP 97.3
[2024-06-25 16:00] VITALS: BP 126/59; PULSE 89; RESP 19; TEMP 97.5
[2024-06-25 20:00] VITALS: BP 149/61; PULSE 93; RESP 20; TEMP 96.7
[2024-06-25] MEDS ORDERED: NALOXONE HCL 0.4MG/ML VIAL IV PRN (22:00)
[2024-06-25] MEDS: TRAMADOL 50MG TABLET PO PRN (22:04)
[2024-06-26] VITALS: BP 138/64; PULSE 90; RESP 20; TEMP 96.2
[2024-06-26 04:00] VITALS: BP 132/77; PULSE 79; RESP 20; TEMP 97.6
[2024-06-26 08:00] VITALS: BP 130/56; PULSE 68; RESP 18; TEMP 97.2
[2024-06-26 12:00] VITALS: BP 121/71; PULSE 75; RESP 18; TEMP 97.3
[2024-06-26 12:45] LABS: POTASSIUM 4.3 mEq/L (3.5-5.1)
[2024-06-26 12:46] LABS: CALCIUM 9.1 mg/dL (8.7-10.4)
[2024-06-26 12:54] LABS: PHOSPHORUS 5.6 mg/dL (2.5-4.9)
[2024-06-26 15:10] VITALS: BP 121/75; PULSE 75; TEMP 97.3; O2SAT 100
[2024-06-26 15:27] VITALS: BP 138/64; PULSE 90; RESP 20
== END 2024-06-26 17:15 | DRG 321 ==
LOC: ER 16:19 → 5WST 20:09 → EDBEDREQTM 20:13 → EDBEDREQ 20:13 → EDBEDREQSVC 20:13 → 7EST 06-11 18:35 → MICUNO 06-15 13:57 → 6EST 06-16 15:23
PROVIDERS: ADMIT Internal Medicine; ATTEND Internal Medicine
PROC: 4A00X4Z Measurement of Central Nervous Electrical Activity, External Approach (ICD-10-PCS; principal; 2024-06-13)
PROC: 30233N1 Transfusion of Nonautologous Red Blood Cells into Peripheral Vein, Percutaneous Approach (ICD-10-PCS; 2024-06-13)
PROC: 0RG2070 Fusion of 2 or more Cervical Vertebral Joints with Autologous Tissue Substitute, Anterior Approach, Anterior Column, Open Approach (ICD-10-PCS; 2024-06-15)
PROC: 00NW0ZZ Release Cervical Spinal Cord, Open Approach (ICD-10-PCS; 2024-06-15)
PROC: 01N10ZZ Release Cervical Nerve, Open Approach (ICD-10-PCS; 2024-06-15)
DX: M47.12 Other spondylosis with myelopathy, cervical region (principal); G82.52 Quadriplegia, C1-C4 incomplete; G92.8 Other toxic encephalopathy; E83.39 Other disorders of phosphorus metabolism; E87.20 Acidosis, unspecified; D63.1 Anemia in chronic kidney disease; M62.82 Rhabdomyolysis; M48.02 Spinal stenosis, cervical region; N17.9 Acute kidney failure, unspecified; R62.7 Adult failure to thrive; G89.4 Chronic pain syndrome; F17.210 Nicotine dependence, cigarettes, uncomplicated; E53.8 Deficiency of other specified B group vitamins; K64.4 Residual hemorrhoidal skin tags; I12.9 Hypertensive chronic kidney disease with stage 1 through stage 4 chronic kidney disease, or unspecified chronic kidney disease; N18.9 Chronic kidney disease, unspecified; D53.9 Nutritional anemia, unspecified; K59.03 Drug induced constipation; T40.2X5A Adverse effect of other opioids, initial encounter; Z90.49 Acquired absence of other specified parts of digestive tract; Z90.5 Acquired absence of kidney; Y92.89 Other specified places as the place of occurrence of the external cause
CPT/HCPCS: 36415; 36600; 70551; 71045; 72040; 72141; 74176; 76000; 76770; 80048; 80053; 80061; 80076; 80320; 81003; 82043; 82247; 82306; 82375; 82550; 82553; 82570; 82607; 82728; 82746; 82805; 82962; 83036; 83540; 83550; 83605; 83615; 83735; 84100; 84145; 84439; 84443; 84484; 85014; 85018; 85025; 85027; 85044; 85049; 85384; 85651; 86038; 86160; 86850; 86900; 86920; 88304; 88311; 92610; 93005; 93306; 93880; 93923; 93970; 95816; 97110; 97116; 97162; 97166; 97168; 97530; 97535; 99291; J0330; J0360; J0690; J0696; J1100; J1580; J1815; J2270; J2405; J2704; J3010; J3420; J3490; J7030; J7042; J7050; J7070; J7121; L0172; P9016; Q9963; C1713; G0480